=== PATIENT | male | born 2000 | race Two or more races ===

== ENCOUNTER 2025-04-15 10:16 | Emergency (ER) | payer OTHER, SELFPAY ==
[2025-04-15 10:24] VITALS: BP 113/65; PULSE 65; RESP 16; TEMP 36.5; O2SAT 98; BMI 21.2
--- NOTE | 2025-04-15 10:44 | CRLHL7_ITS ---
For Patients: As a result of the Century Cures Act, medical imaging exams and procedure reports are released immediately into your electronic medical record. You may view this report before your referring provider. If you have questions, please contact your health care provider. Indication: Knee pain Technique: Right knee 3 views Comparison: None Findings: Bones: Alignment is normal. No fractures or bone lesions. Joint spaces: Joint spaces are well maintained. No degenerative changes. No sign of joint effusion. Soft tissues: Unremarkable. Impression: Unremarkable right knee series. Dictated by Cristino Ferrell MD @ 04/15/2025 11:49:46 AM (Electronically Signed)
--- NOTE | 2025-04-15 10:46 | ED.LOWEXIN ---
HPI - Extremity Injury (Lower) General Date Seen: 04/15/25 Chief Complaint: Extremity Pain/Injury, Lower Stated Complaint: R foot injury Time Seen by Provider: 04/15/25 10:31 Source: patient Mode of arrival: ambulatory Limitations: no limitations History of Present Illness HPI Narrative: Patient is a 24-year-old Brazilian-speaking gentleman who works as a materials assistant in [place], approximately 1 month ago he injured his right ankle, it sounds like over eversion type injury. 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 I think he was initially seen, and told that everything was okay. He also complains of pain in his right knee when he works out, he describes it more on the medial patellar region. When he flexes or extends his knee, he does not give a history of going up and down stairs causing discomfort, the knee itself is never swelled, he has noted no instability, no grinding or locking associated with this no history of previous ankle or knee surgeries. Does not take any medications for the. Related Data Home Medications ?Medication ?Instructions ?Recorded ?Confirmed No Known Home Medications 04/15/25 04/15/25 Allergies Allergy/AdvReac Type Severity Reaction Status Date / Time No Known Drug Allergies Allergy Verified 04/15/25 10:33 Review of Systems Status of ROS: Reports: 6 or more systems reviewed and unremarkable except as noted in History and below Exam Narrative: Exam Narrative: On examination in room 4, senior mechanical designer is used via the [employer] senior mechanical designer. He has absolutely no swelling, slightly prominent right lateral malleolar region, but there is no swelling of his lower extremities bilaterally. DP and posterior tibial pulses normal, range of motion is normal, on for dorsiflexion plantar flexion, forced inversion does not cause any discomfort but eversion causes little bit of pain over the right lateral malleolar posterior region. He has also pinpoint tender over this area. Hodges's test is negative, able to walk without any gait instability or obvious limp. Knee has excellent full range of motion of flexion extension, both medial and lateral stressing does not reproduce any discomfort popliteal fossa clear, with normal popliteal pulses and there is no effusion. He has a little bit tender over the right medial patellar area. Const: Vital Signs, click to edit/add: Vital Signs - 24 hr 04/15/25 10:24 Temperature 97.7 F Pulse Rate [Pulse Oximeter] 65 Respiratory Rate 16 Blood Pressure [Ri ght Upper Arm] 113/65 Pulse Oximetry 98 Oxygen Delivery Me thod Room Air Documenting provider has reviewed patient's vital signs: yes Course Course ED Course: Review of the x-rays is done, no evidence of any bony abnormality, such as fracture, dislocation. Radiologic read pending. Vital Signs Vital signs: Initial Vital Signs Temperature 97.7 F 04/15/25 10:24 Temperature Source Temporal Artery Scan 04/15/25 10:24 Pulse Rate 65 04/15/25 10:24 Respiratory Rate 16 04/15/25 10:24 Blood Pressure 113/65 04/15/25 10:24 Blood Pressure Mean 81 04/15/25 10:24 Pulse Oximetry 98 04/15/25 10:24 Oxygen Delivery Method Room Air 04/15/25 10:24 Vital Signs Temperature 97.7 F 04/15/25 10:24 Pulse Rate 65 04/15/25 10:24 Respiratory Rate 16 04/15/25 10:24 Blood Pressure 113/65 04/15/25 10:24 Pulse Oximetry 98 04/15/25 10:24 Oxygen Delivery Method Room Air 04/15/25 10:24 Temperature 97.7 F 04/15/25 10:24 Pulse Rate 65 04/15/25 10:24 Respiratory Rate 16 04/15/25 10:24 Blood Pressure 113/65 04/15/25 10:24 Pulse Oximetry 98 04/15/25 10:24 Oxygen Delivery Method Room Air 04/15/25 10:24 MDM - Extremity Injury (Lower) MDM Narrative Medical decision making narrative: I discussed with him that we will get some x-rays, I suspect that is ankle may be ligamentous issue, as he did show me a picture of it swallow old yesterday after day being on it. The right knee I suspect is more of a patellar issue. Rule out fracture, Differential Diagnosis Differential diagnosis: Likely ankle sprain and strain, acute internal derangement of knee and ankle fracture Discharge Plan Discharge Clinical Impression: Ankle pain, Acute knee pain Patient Disposition: Home, Self-Care Condition: Stable Instructions: Ankle Sprain (DC), Knee Pain (ED) Additional Instructions: Home rest, your knee pain I suspect as her x-rays are negative, is from a little bit of patellar discomfort, continuing to exercise her quadriceps should help this, I recommend follow-up with orthopedics if ongoing concerns. Your ankle is likely ligamentous in nature, likely from a strain from her injury. He may benefit from ankle brace, you may purchase 1 of these from the pharmacy. It suspected will swell up for the next 3-4 months. As any time your up on your feet the entire time. Follow-up with orthopedics as needed Working is okay, Activity Level: No Restrictions Discharge Diet: Regular Prescriptions: No Action No Known Home Medications Follow Up/Referrals: Provider,Not a Local [Primary Care Provider, Family Practice] Stand Alone Forms: [employer] Info Instructions
--- NOTE | 2025-04-15 11:15 | CRLHL7_ITS ---
For Patients: As a result of the Century Cures Act, medical imaging exams and procedure reports are released immediately into your electronic medical record. You may view this report before your referring provider. If you have questions, please contact your health care provider. INDICATION: Right ankle pain TECHNIQUE: Three portable views of the right ankle COMPARISON: None FINDINGS: No soft tissue swelling. No fracture, joint space narrowing or other abnormality. IMPRESSION: Negative right ankle Dictated by Paul Card MD @ 04/15/2025 12:16:11 PM (Electronically Signed)
== END 2025-04-15 12:03 | disposition home or self-care (01) ==
PROVIDERS: Emergency Provider Family Medicine
DX: M25.571 Pain in right ankle and joints of right foot (principal); M79.671 Pain in right foot
CPT/HCPCS: 73562; 73610; 99283; 99284